=== PATIENT | male | born 1980 | race Caucasian/White ===

== ENCOUNTER 2019-02-25 14:49 | Inpatient (IN) ==
[2019-02-25] MEDS ORDERED: ASPIRIN PO ONE (15:05)
--- NOTE | 2019-02-25 15:22 | EKG Report ---
Test Performed on : 02/25/2019 3:04:52 PM Test Reason : chest pain Blood Pressure : / mmHG Vent. Rate : 066 BPM Atrial Rate : 066 BPM P-R Int : 164 ms QRS Dur : 096 ms QT Int : 416 ms P-R-T Axes : 069 020 043 degrees QTc Int : 436 ms Normal sinus rhythm. Normal ECG No previous ECGs available Unconfirmed Result
[2019-02-25 15:56] LABS: BASO# 0.06 X1000 (0.0-0.2); BASO% 0.6 % (0.0-0.8); EOS% 2.8 % (0.0-10.0); HEMATOCRIT 44.6 % (42.0-52.0); HEMOGLOBIN 15.1 g/dL (14.0-18.0); IMM GRAN# 0.01 X1000 (0.0-0.04); IMM GRAN% 0.1 % (0.0-0.5); LYMPH# 2.17 X1000 (1.2-3.4); LYMPH% 20.5 % (20.5-51.1); MCH 29.8 PG (27-31); MCHC 33.9 g/dL (33-37); MCV 88.1 FL (81-99); MONO# 0.89 X1000 (0.11-0.59); MONO% 8.4 % (1.7-9.3); MPV 9.1 FL (7.4-10.4); NEUT# 7.13 X1000 (1.4-6.5); NEUT% 67.6 % (42.2-75.2); PLT 304 X1000 (130-400); RBC 5.06 XMIL (4.7-6.1); RDW 14.2 % (11.5-14.5); WBC 10.56 X1000 (4.8-10.8)
--- NOTE | 2019-02-25 15:56 | Diag Imaging Result Doc PS360 ---
EXAM: CHEST-2 VIEWS 02/25/2019 HISTORY: chest pain TECHNIQUE: PA and lateral chest COMMENT: The appearance the chest has not changed significantly since the previous examination of 02/05/2010. IMPRESSION: No acute disease. Electronically signed by Demetri Rondon 02/25/2019 3:54 PM
[2019-02-25 16:01] LABS: INR 0.9; PROTIME 12.6 Seconds (11.0-16.0); PTT 31.5 Seconds (22.3-41.8)
[2019-02-25 16:08] LABS: AGAP 13; ALBUMIN 4.5 g/dL (3.5-5.0); ALKALINE PHOSPHATASE 72 U/L (32-122); BUN 12 mg/dL (8-22); CHLORIDE 100 mmol/L (98-107); CK PROFILE 112 U/L (24-204); COSMO 277; CREATININE 0.8 mg/dL (0.7-1.2); ESTIMATED GFR > 60; GLUCOSE 196 mg/dL (70-104); GOT 19 U/L (10-34); GPT 14 U/L (10-44); POTASSIUM 4.3 mmol/L (3.5-5.1); SODIUM 136 mmol/L (136-145); TCO2 23 mmol/L (25-35); TOTAL PROTEIN 6.6 g/dL (6.3-8.3)
--- NOTE | 2019-02-25 16:31 | PROVIDER DOCUMENTATION ---
HPI-Chest Pain - General Chief Complaint: Chest Pain Stated Complaint: CHEST PAIN Time Seen by Provider: 02/25/19 16:03 Source: patient Allergies/Adverse Reactions: Patient Allergies Allergy/AdvReac Type Severity Reaction Status Date / Time No Known Allergies Allergy Verified 08/05/17 20:13 Home Medications: Home Medication List Medication Instructions Recorded Confirmed Last Taken Type Escitalopram Oxalate [Lexapro] 20 mg PO DAILY 10/26/13 02/25/19 07/01/17 History Levothyroxine Sodium [Synthroid] 250 mcg PO DAILY 10/26/13 02/25/19 07/01/17 History Amlodipine Besylate 1 tab PO DAILY 07/01/17 02/25/19 Unknown History Losartan/Hydrochlorothiazide 1 tab PO DAILY 07/01/17 02/25/19 07/01/17 History [Losartan-Hctz 100-12.5 mg Tab] Gabapentin 1 dose PO DAILY 02/25/19 02/25/19 Unknown History Insulin Glargine [Lantus Insulin] 1 dose SQ DAILY 02/25/19 02/25/19 Unknown History Insulin Human Regular [Humulin R] 1 dose SQ DAILY 02/25/19 02/25/19 Unknown History - History of Present Illness-CP Nature of Presenting Problem: pt 38 yo WM w c/o chest discomfort and tightness with fatigue since starting lantus greater than 1 month ago, denies SOB, diaphoresis, or WATKINS, no aggravating or alleviating factors, states discomfort at rest, no radiation.Hx dm1,htn, HLD Location: reports: other (generalized) Chest Pain Radiation: reports: no radiation Quality of Pain: reports: pressure, other (discomfort) Severity in ED: mild Onset/Duration: other (greater than 1 month) Timing: still present, intermittent Context/Activities at Onset: reports: none Modifying Factors: improves with: nothing Associated Symptoms: reports: fatigue Nitro Today/Relief: no nitro taken today Aspirin Treatment Today: provided by ED Similar Symptoms Previously?: Yes (intermittant for past month) Recently Seen Here or By Another Healthcare Provider: No Review of Systems - Adult - REVIEW OF SYSTEMS - ADULT Constitutional: reports: paigeque Eyes: reports: no symptoms reported Ears, Nose, Mouth & Throat: reports: no symptoms reported Cardiovascular: reports: see HPI Respiratory: reports: no symptoms reported Gastrointestinal: reports: no symptoms reported Genitourinary: reports: no symptoms reported Musculoskeletal: reports: no symptoms reported Integumentary: reports: no symptoms reported Neurological: reports: no symptoms reported Psychiatric: reports: no symptoms reported Endocrine: reports: no symptoms reported Hematologic/Lymphatic: reports: no symptoms reported Allergic/Immunologic: reports: no symptoms reported All Other Systems: Reviewed and Negative Past History - Adult - PAST MEDICAL HISTORY-ADULT Review of Records: reports: Old Records Reviewed, Nursing Assessment Review, Medications Reviewed Major Childhood Illnesses: reports: denies history Cardiovascular: reports: HTN, hyperlipidemia Endocrine/Immune: reports: Diabetes, thyroid disorder (hypo) Diabetes Type: Type 1 - PRIOR SURGERIES/PROCEDURES Surgical/Procedure History: reports: orthopedic (extremity) - IMMUNIZATION STATUS Childhood Immunizations: See Nurse Assessment Flu Vaccine: See Nurse Assessment - FAMILY HISTORY Family History: reviewed, not pertinent - SOCIAL HISTORY Smoking: greater than 1 pack/day Provider spent 3-5 mins advising pt. on dangers of tobacco.: Discussed manners to quit use, and f/u contacts for add'l counseling. Substance Use: none/never Alcohol Use Frequency: never Physical Exam-General - PHYSICAL EXAM-ADULT Initial Vital Signs Reviewed: Yes - CONSTITUTIONAL General Appearance: appears well, alert, no apparent distress - EYES Eyes: PERRL/EOMI, pink conjunctivae - HEAD, EARS, NOSE, MOUTH & THROAT HENMT: normocephalic/atraumatic, moist mucous membranes - NECK Neck: non-tender - RESPIRATORY Respiratory: chest non-tender, lungs clear, normal breath sounds - CARDIOVASCULAR Cardiovascular: normal peripheral pulses, regular rate, rhythm, no edema - GASTROINTESTINAL (ABDOMEN) Abdominal Exam: normal bowel sounds, non tender, soft - LYMPHATIC Lymphatic: no adenopathy - MUSCULOSKELETAL Back Exam: normal inspection Extremity: normal range of motion - SKIN Integumentary: normal color, normal turgor - NEUROLOGIC Neurologic: grossly normal, no motor/sensory deficits - PSYCHIATRIC Psych/Mental Status: normal mood/affect, normal thought content, normal thought process, oriented x 3 - HEART Score HEART Score: History: Highly Suspicious HEART Score: ECG: Normal HEART Score: Age: < or = 45 Years HEART Score: Risk Factors for Atherosclerotic Disease: > or = 3 Risk Factors or History of Atherosclerotic Disease HEART Score: Troponin: < or = Normal Limit Total HEART Score:: 4 Progress - PLAN OF CARE/RESULTS Progress/Plan/Lab Results: Vital Signs - 8 hr 02/25/19 14:52 02/25/19 16:44 02/25/19 17:56 Temperature 97.5 F L Pulse Rate 75 65 63 Respiratory Rate 20 18 18 Blood Pressure 203/112 163/106 158/106 O2 Sat by Pulse Oximetry 96 97 99 Laboratory Results - last 24 hr 02/25/19 02/25/19 02/25/19 15:07 15:07 15:07 WBC 10.56 RBC 5.06 Hgb 15.1 Hct 44.6 MCV 88.1 MCH 29.8 MCHC 33.9 RDW Std Deviation 14.2 Plt Count 304 MPV 9.1 Immature Gran % (Auto) 0.1 Neut % (Auto) 67.6 Lymph % (Auto) 20.5 Coal % (Auto) 8.4 Eos % (Auto) 2.8 Baso % (Auto) 0.6 Immature Gran # (Auto) 0.01 Neut # (Auto) 7.13 H Lymph # (Auto) 2.17 Coal # (Auto) 0.89 H Eos # (Auto) 0.30 Baso # (Auto) 0.06 PT INR PTT (Actin FS) Sodium 136 Potassium 4.3 Chloride 100 Carbon Dioxide 23 L Anion Gap 13 BUN 12 Creatinine 0.8 Estimated GFR/1.73 m2 > 60 BUN/Creatinine Ratio 15 Glucose 196 H Calculated Osmolality 277 Calcium 9.0 Total Bilirubin 0.30 AST 19 ALT 14 Alkaline Phosphatase 72 Creatine Kinase 112 Troponin T Eeh-E-Jrubzaedbhz Pept 20 Total Protein 6.6 Albumin 4.5 Globulin 2.0 Albumin/Globulin Ratio 2.0 02/25/19 02/25/19 02/25/19 15:07 15:07 17:27 WBC RBC Hgb Hct MCV MCH MCHC RDW Std Deviation Plt Count MPV Immature Gran % (Auto) Neut % (Auto) Lymph % (Auto) Coal % (Auto) Eos % (Auto) Baso % (Auto) Immature Gran # (Auto) Neut # (Auto) Lymph # (Auto) Coal # (Auto) Eos # (Auto) Baso # (Auto) PT 12.6 INR 0.90 PTT (Actin FS) 31.5 Sodium Potassium Chloride Carbon Dioxide Anion Gap BUN Creatinine Estimated GFR/1.73 m2 BUN/Creatinine Ratio Glucose Calculated Osmolality Calcium Total Bilirubin AST ALT Alkaline Phosphatase Creatine Kinase 105 Troponin T < 0.010 Ykc-L-Crshskvxuum Pept Total Protein Albumin Globulin Albumin/Globulin Ratio 02/25/19 17:27 WBC RBC Hgb Hct MCV MCH MCHC RDW Std Deviation Plt Count MPV Immature Gran % (Auto) Neut % (Auto) Lymph % (Auto) Coal % (Auto) Eos % (Auto) Baso % (Auto) Immature Gran # (Auto) Neut # (Auto) Lymph # (Auto) Coal # (Auto) Eos # (Auto) Baso # (Auto) PT INR PTT (Actin FS) Sodium Potassium Chloride Carbon Dioxide Anion Gap BUN Creatinine Estimated GFR/1.73 m2 BUN/Creatinine Ratio Glucose Calculated Osmolality Calcium Total Bilirubin AST ALT Alkaline Phosphatase Creatine Kinase Troponin T < 0.010 Med-O-Umuqugsbrwc Pept Total Protein Albumin Globulin Albumin/Globulin Ratio Orders Category Date Time Status Cardiac Monitoring DIRECTED Care 02/25/19 15:05 Active If abnormal EKG, order: NOW Care 02/25/19 14:57 Active Oxygen Therapy- ED Nursing DIRECTED Care 02/25/19 15:05 Active Saline Loc NOW Care 02/25/19 15:05 Active CHEST-2 VIEWS [RAD] Stat Exams 02/25/19 14:57 Completed CBC WITH ELECTRONIC DIFF [HEME] Stat Lab 02/25/19 15:07 Completed CK PROFILE [SP CHEM] Stat Lab 02/25/19 15:07 Completed CK PROFILE [SP CHEM] Stat Lab 02/25/19 17:27 Completed COMPREHENSIVE METABOLIC PANEL [CHEM] Stat Lab 02/25/19 15:07 Completed PRO B-NATRIURETIC PEPTIDE Stat Lab 02/25/19 15:07 Completed PROTIME WITH INR [COAG] Stat Lab 02/25/19 15:07 Completed PTT [COAG] Stat Lab 02/25/19 15:07 Completed TROPONIN T Stat Lab 02/25/19 15:07 Completed TROPONIN T Stat Lab 02/25/19 17:27 Completed Aspirin Med 02/25/19 15:05 Discontinued 325 mg PO NOW ONE Clonidine [Catapres] Med 02/25/19 17:46 Discontinued 0.1 mg PO NOW ONE CP/Palp <45 No Known Cardiac Hx Stat Oth 02/25/19 14:57 Ordered CP/SOB/Palp >45 yrs of Age Stat Oth 02/25/19 15:05 Ordered EKG [EKG] Stat Ther 02/25/19 14:57 Draft EKG [EKG] Stat Ther 02/25/19 17:20 Ordered Transfer/Admit Order [TRANSFER] Routine Transfer 02/25/19 18:15 Ordered Discussed with patient the findings and adressed BP elevation, informed patient he would be admitted to [facility] for CP observation, pt verbalized understanding and agreed with POC. Result Diagrams: 02/25/19 15:07 02/25/19 15:07 - XRAY 1 XRAY Study: Chest Impression: Normal XRAY Interpretation: nad - CONSULTS/PCP/HOSPITALIST Notification #1 *Consult/PCP/Hospitalist*: penot Time Discussed: 18:30 Consult Disposition: Admit Departure - Departure Date of Disposition Decision: 02/25/19 Time of Disposition Decision: 18:30 DIAGNOSIS: Chest pain Disposition: ADMITTED INPATIENT 09 Certified Medical Emergency: Emergent Condition: Stable Referrals and Follow-Ups: None,PCP [Primary Care Provider] - - Critical Care Note This patient required my direct & personal management of CC.: No Attestation - Physician/ FARAZ Attestation Patient care was provided by Advanced Practice Provider:: Yes Advanced Practice Provider:: Pasquale Andrews Advanced Practice Provider documentation review:: The Mid-level provider documentation, treatment plan and medical decision making was reviewed by the physician who agrees with all treatment and medical decision making by the MLP. The physician spent face to face time with patient:: No Advanced Practice Provider documentation review:: Supervising physician onsite and consulted in the evaluation and care of this patient. The physician did not have a face to face encounter with the patient.
[2019-02-25] MEDS ORDERED: CATAPRES PO ONE (17:46)
--- NOTE | 2019-02-25 19:07 | EKG Report ---
Test Performed on : 02/25/2019 5:56:40 PM Test Reason : repeat Blood Pressure : / mmHG Vent. Rate : 057 BPM Atrial Rate : 057 BPM P-R Int : 132 ms QRS Dur : 098 ms QT Int : 438 ms P-R-T Axes : 017 -14 019 degrees QTc Int : 426 ms Sinus bradycardia. Otherwise normal ECG When compared with ECG of 25-FEB-2019 15:04, (Unconfirmed) No significant change was found Unconfirmed Result
[2019-02-25] MEDS ORDERED: ZOFRAN IV PRN (19:24)
[2019-02-25] MEDS ORDERED: TYLENOL PO PRN (19:24)
[2019-02-26] MEDS ORDERED: ULTRAM PO PRN (08:50)
[2019-02-26] MEDS ORDERED: LANTUS INSULIN SUBQ SCH (09:00)
[2019-02-26 09:16] LABS: HEMOGLOBIN A1C 6.9 % (4.8-6.0)
--- NOTE | 2019-02-26 09:51 | HISTORY AND PHYSICAL ---
PRIMARY CARE PHYSICIAN: [facility]. CHIEF COMPLAINT: Chest discomfort and tightness with fatigue. HISTORY OF PRESENTING ILLNESS: This is a 38-year-old, male who presents to [facility] ER with complaints of chest discomfort and tightness. Denies any radiating of symptoms. He has also noted some fatigue. He states about a month ago, he had his Lantus dosage adjusted by [facility] and since that time, he has not felt really good. States his blood sugars normally run 150 to 200. Stated nothing made the pain worse and rest made it better. He also states he has had a headache. He continues to smoke a pack of cigarettes a day. His workup showed 2 sets of cardiac enzymes were negative. EKG showed normal sinus rhythm at 66. His blood pressure was elevated when he arrived at 203/112. He states he has been compliant with his medication regimen. This morning, his blood pressure is 180/115. We have ordered his home medications and will adjust after he takes those as needed. So he has been admitted for further evaluation and treatment. PAST MEDICAL HISTORY: Hypertension, hyperlipidemia, diabetes type 1, hypothyroidism, depression. PAST SURGICAL HISTORY: Arthroscopy to reattach a ligament. FAMILY HISTORY: Reviewed and noncontributory. SOCIAL HISTORY: He currently lives with family. He is a pack a day smoker and has done so for 15+ years. Denies any alcohol or illicit drug use. ALLERGIES: He has no known drug allergies. HOME MEDICATIONS: He takes 1. Levothyroxine 125 mcg p.o. daily. 2. Amlodipine 5 mg p.o. daily. 3. Lexapro 20 mg p.o. daily. 4. Gabapentin 300 mg p.o. b.i.d. 5. Lantus 33 units subcutaneous b.i.d. 6. Humulin-R 22 units subcutaneous b.i.d. 7. Losartan 100 mg p.o. daily. 8. Tramadol 50 mg p.o. b.i.d. p.r.n. LABORATORY DATA: Showed a white blood cell count of 10.56, hemoglobin 15.1, hematocrit 44.6, platelets 304,000. PT and INR of 12.6 and 0.90. Sodium 136, potassium 4.3, chloride 100, CO2 23, BUN of 12, creatinine 0.8, glucose 196. Cardiac enzymes x2 sets were negative. Chest x-ray showed no acute disease. EKG showed normal sinus rhythm at 66. REVIEW OF SYSTEMS: He denied any fever, chills, blurred vision, dizziness. He was positive for fatigue, chest pain. Denied any cough or shortness of breath. Denied any abdominal pain, constipation, diarrhea, burning or hurting with urination. PHYSICAL EXAMINATION: VITAL SIGNS: On arrival, he had a temperature of 97.5 degrees, pulse 75, respirations 20, blood pressure 203/112, saturating 96% on room air. Currently, blood pressure is 180/115. GENERAL: This is a 38-year-old, male who is lying in the bed and answers questions appropriately. HEENT: Normocephalic, atraumatic. Normal ENT inspection. Oropharynx and nares are clear. Eyes: Pupils are equal, round, and reactive to light and accommodation. Extraocular movements are intact. NECK: Normal inspection. Normal range of motion. LUNGS: Clear to auscultation bilaterally with equal lung expansion and chest wall movement. HEART: Regular rate and rhythm. No murmurs, rubs, or gallops. ABDOMEN: Soft, nontender, nondistended. Bowel sounds are present x4 quadrants. MUSCULOSKELETAL: He had 5 out of 5 strength x4 extremities. NEUROLOGICAL: The cranial nerves 2-12 appear grossly intact. ASSESSMENT: 1. Chest pain. 2. Uncontrolled hypertension. 3. Diabetes type 2 uncontrolled with hyperglycemia. 4. Hypothyroidism. PLAN: He was admitted to the medical unit at [facility], placed on telemetry and diabetic diet. He will be n.p.o. after midnight for a myocardial perfusion scan. We are going to check one more cardiac enzyme and troponin to complete the series. Continue his home medications. Pattern blood sugars with sliding scale insulin. We will check a hemoglobin A1c today. In the a.m., we will recheck a CBC, BMP, lipid profile, TSH and free T4, and a magnesium. We will re-evaluate his blood pressure after he receives his home medications this morning to see if we need to add any additional medications and can get it under better control. Further orders after seen by attending. Dictated by TERI Garcia for Rohit Gonzalez MD cc: TERI Garcia MD
[2019-02-26] MEDS: LEXAPRO PO SCH (09:53)
[2019-02-26] MEDS: COZAAR PO SCH (09:53)
[2019-02-26] MEDS: SYNTHROID PO SCH (09:54)
[2019-02-26] MEDS: NORVASC PO SCH (09:54)
[2019-02-26] MEDS: NEURONTIN PO SCH ×2 (10:05→21:54)
[2019-02-26] MEDS: HUMULIN R (PARKWAY) SUBQ SCH ×2 (10:13→21:55)
[2019-02-26] MEDS: HUMALOG (PARKWAY) SUBQ SCH ×3 (11:28→22:00)
--- NOTE | 2019-02-26 20:06 | PROGRESS NOTE ---
DATE: 02/26/2019 SUBJECTIVE: The patient came in with chest pain. He has no known cardiac history, but he is a diabetic. He is hypertensive. He does have some cholesterol issues. Exam was really unremarkable. He was admitted for treatment. So, plan will be to rule out and pursue cardiac stress test tomorrow. If all that workup is negative, he will likely go home. This is a face-to- face encounter note with Sheila Sandoval. cc: Rohit Gonzalez MD
[2019-02-26] MEDS: LEVEMIR INSULIN *HA SUBQ SCH (21:54)
[2019-02-27 06:22] LABS: BASO# 0.05 X1000 (0.0-0.2); BASO% 0.7 % (0.0-0.8); EOS# 0.23 X1000 (0.0-0.7); EOS% 3.4 % (0.0-10.0); HEMATOCRIT 41.9 % (42.0-52.0); HEMOGLOBIN 13.9 g/dL (14.0-18.0); IMM GRAN# 0.01 X1000 (0.0-0.04); IMM GRAN% 0.1 % (0.0-0.5); LYMPH# 2.07 X1000 (1.2-3.4); LYMPH% 30.8 % (20.5-51.1); MCH 29.4 PG (27-31); MCHC 33.2 g/dL (33-37); MCV 88.8 FL (81-99); MONO# 0.69 X1000 (0.11-0.59); MONO% 10.3 % (1.7-9.3); MPV 8.8 FL (7.4-10.4); NEUT# 3.67 X1000 (1.4-6.5); NEUT% 54.7 % (42.2-75.2); PLT 254 X1000 (130-400); RBC 4.72 XMIL (4.7-6.1); RDW 13.9 % (11.5-14.5); WBC 6.72 X1000 (4.8-10.8)
[2019-02-27 06:31] LABS: AGAP 11; BUN 14 mg/dL (8-22); CALCIUM 8.9 mg/dL (8.8-10.2); CHLORIDE 101 mmol/L (98-107); COSMO 285; CREATININE 0.7 mg/dL (0.7-1.2); ESTIMATED GFR > 60; GLUCOSE 155 mg/dL (70-104); POTASSIUM 4.3 mmol/L (3.5-5.1); SODIUM 141 mmol/L (136-145); TCO2 30 mmol/L (25-35)
[2019-02-27] MEDS ORDERED: SYNTHROID PO SCH ×3 (07:00)
[2019-02-27 07:01] LABS: FREE T4 0.87 ng/dL (0.93-1.70)
[2019-02-27 07:19] LABS: TSH 96.75 uIUmL (0.27-4.20)
[2019-02-27] MEDS: HUMALOG (PARKWAY) SUBQ SCH ×3 (07:35→16:52)
[2019-02-27] MEDS: SYNTHROID PO SCH (07:37)
--- NOTE | 2019-02-27 10:12 | EKG Report ---
Test Performed on : 02/27/2019 10:06:43 AM Test Reason : STRESS TEST Blood Pressure : / mmHG Vent. Rate : 056 BPM Atrial Rate : 056 BPM P-R Int : 176 ms QRS Dur : 094 ms QT Int : 434 ms P-R-T Axes : 074 -01 064 degrees QTc Int : 418 ms Sinus bradycardia. Otherwise normal ECG When compared with ECG of 25-FEB-2019 17:56, (Unconfirmed) No significant change was found Confirmed by Melecio Arora MD ([id number]) on 03/02/2019 1:47:10 AM
[2019-02-27] MEDS: NEURONTIN PO SCH (13:15)
[2019-02-27] MEDS: COZAAR PO SCH (13:15)
[2019-02-27] MEDS: NORVASC PO SCH (13:15)
[2019-02-27] MEDS: LEXAPRO PO SCH (13:16)
[2019-02-27] MEDS: HUMULIN R (PARKWAY) SUBQ SCH (13:17)
[2019-02-27] MEDS: LEVEMIR INSULIN *HA SUBQ SCH (13:17)
[2019-02-27] MEDS ORDERED: LEXISCAN ONE (13:38)
--- NOTE | 2019-02-27 14:33 | GRADED EXERCISE REPORT ---
DATE: 02/27/2019 PROCEDURE: Lexiscan. INDICATION: Chest pain. DESCRIPTION OF PROCEDURE IN DETAIL: Briefly this is a 38-year-old male, hypertensive, diabetic presenting with chest pain. He underwent Lexiscan per protocol. Baseline EKG shows nonspecific changes with ST depression in 3, really nonspecific. He underwent 0.4 mg push of Lexiscan. Did not develop chest pain during the entire test. There were no significant ST changes. His peak blood pressure was 184/95. Peak heart rate of 78. Baseline heart rate 55. Maximum ST change: There was just no significant ST changes. The test was felt to be clinically negative and electrically negative. Myocardial perfusion reported separately. cc: Rohit Gonzalez MD
--- NOTE | 2019-02-27 15:55 | Diag Imaging Result Document ---
PROCEDURE NAME: MYOCARDIAL PERF SCAN, STR/REST - 02/27/2019 INDICATION: A 38-year-old male with chest pain. REQUESTING PHYSICIAN: Dr. Roberto Gonzalez. DESCRIPTION: The patient came into the nuclear lab and received a resting injection of technetium 99 sestamibi 15.7 mCi. Multiple tomographic views of the cardiac structures were obtained at rest. Subsequently, the patient underwent infusion of Lexiscan 0.4 mg. At peak infusion he was injected with technetium 99 sestamibi 45.8 mCi. Multiple tomographic views of the cardiac structures were obtained following the completion of the protocol. SUMMARY OF THE ELECTROCARDIOGRAPH PORTION OF THE STUDY: The ECG portion has been reported by Dr. Gonzalez already. SUMMARY OF THE MYOCARDIAL PERFUSION PORTION OF THE STUDY: Poststress tomographic views of the left ventricle showed normal homogeneous distribution of the radiotracer throughout the entire left ventricular myocardium. There is no evidence of any postexercise defect. The rest images showed normal perfusion. The polar plots revealed the same. There is no convincing evidence of any inducible ischemia nor myocardial scar. The gated SPECT showed normal left ventricular systolic function. Ejection fraction is 61%. End-systolic volume 65 mL. The lung/heart ratio is normal at 0.38. TID is normal at 0.97. CONCLUSION: In summary, this study shows: 1. Normal poststress myocardial perfusion scan. There is no scintigraphic evidence of pharmacologically induced myocardial ischemia. 2. Normal left ventricular systolic function. Ejection fraction is calculated at 61% with normal ventricular volumes and no wall motion abnormality. This study would represent a low risk for ischemic events. Clinical correlation is recommended. cc: MD Shelia Delatorre CRNP
[2019-02-27 16:14] VITALS: BP 173/88
--- NOTE | 2019-04-10 12:00 | DISCHARGE SUMMARY ---
ADMISSION DATE: 02/25/2019 DISCHARGE DATE: 02/27/2019 PROCEDURES: None. REASON FOR ADMISSION: Admission initially was chest pain and uncontrolled hypertension. HISTORY AND HOSPITAL COURSE: Briefly, this is a 38-year-old male with history of chest pain and tightness and initial blood pressure 203/112. He was placed on several medications. He was placed on other medications. He underwent a stress test on 02/27/2019, which was negative. No evidence of ischemia, and he was felt stable for discharge on 02/27/2019. DISCHARGE MEDICATIONS: Amlodipine 5, gabapentin 300 b.i.d., Humulin R 22 b.i.d., Lantus 33 b.i.d., Lexapro 20 daily, losartan 100 daily, tramadol 50 b.i.d., and Synthroid 150 daily. His TSH was extremely high at 96, and a free T4 of 0.87. This will need to be analyzed in the next 4 to 6 weeks, if he has a primary care. He has seen Dr. Gates in the past, but he will need to follow up from the standpoint of hypertension and also from hypothyroidism. TIME SPENT: A 32-minute discharge. cc: Rohit Gonzalez MD
== END 2019-02-27 18:51 | disposition home or self-care (01) | DRG 313 ==
LOC: P.MEDSURG 14:49 → P.ED 14:49 → OBSVTOIN 19:18
PROVIDERS: ATTEND Internal Medicine